=== PATIENT | male | born 1960 | race Two or more races ===

== ENCOUNTER 2022-05-14 16:06 | Inpatient (IN) | payer OTHER ==
[~2022-05-14] VITALS: Ht 165.1 cm; Wt 59.0 kg
[2022-05-14] MEDS ORDERED: SODIUM CHLORIDE 0.9% 1,000 ML IV ONE (16:45)
[2022-05-14 17:19] LABS: BASOPHILS % 0.6 % (0.0-2.0); EOSINOPHILS % 0.5 % (0.0-5.0); HEMATOCRIT. 46.6 % (42.0-52.0); HEMOGLOBIN. 15.6 g/dL (14.0-18.0); LYMPHOCYTES % 10.6 % (20.0-50.0); MEAN CORPUSCULAR HEMOGLOBIN 31.6 pg (28.0-32.0); MEAN PLATELET VOLUME 7.5 fl (7.4-10.4); NEUTROPHILS % 83.3 % (40.0-76.0); PLATELET 341 x1000/uL (130-400); RED BLOOD CELL COUNT 4.95 mill/uL (4.7-6.1); RED CELL DISTRIBUTION WIDTH 14.1 % (11.6-14.6)
[2022-05-14 17:26] LABS: CHLORIDE 107 mEq/L (98-107)
[2022-05-14 17:46] LABS: CREATINE KINASE 263 IU/L (39-308); ETHANOL BLOOD < 10 mg/dL
[2022-05-14 20:35] VITALS: BP 132/83
[2022-05-14] MEDS ORDERED: ACETAMINOPHEN 650MG SUPP PR PRN (22:15)
[2022-05-14] MEDS ORDERED: ACETAMINOPHEN 325MG TABLET PO PRN (22:15)
[2022-05-14] MEDS ORDERED: CEFTRIAXONE 2 G PREMIX 50 ML IV SCH (22:15)
[2022-05-14] MEDS: CEFTRIAXONE 2 G in DEXTROSE 5% WATER 50 ML IV SCH (22:47)
[2022-05-15] VITALS: BP 134/80
[2022-05-15] MEDS ORDERED: FOLIC ACID 1 MG, THIAMINE HCL 100 MG, MVI, ADULT NO.1 10 ML in DEXTROSE 5% WATER 1,000 ML IV ONE ×4
[2022-05-15] MEDS ORDERED: ACETAMINOPHEN 325MG TABLET PO PRN ×2 (01:00)
[2022-05-15] MEDS ORDERED: DIPHENHYDRAMINE 50MG/ML VIAL IV PRN (01:00)
[2022-05-15] MEDS ORDERED: ONDANSETRON HCL 4MG/2ML INJ IV PRN (01:00)
[2022-05-15] MEDS ORDERED: HALOPERIDOL LACTATE 5MG/ML VIAL IM PRN (01:15)
[2022-05-15 04:00] VITALS: BP 129/71
[2022-05-15 07:37] LABS: BASOPHILS % 0.8 % (0.0-2.0); EOSINOPHILS % 0.9 % (0.0-5.0); HEMATOCRIT. 39.1 % (42.0-52.0); HEMOGLOBIN. 13.2 g/dL (14.0-18.0); LYMPHOCYTES % 14.9 % (20.0-50.0); MEAN CORPUSCULAR HEMOGLOBIN 32.2 pg (28.0-32.0); MEAN CORPUSCULAR VOLUME 95.1 fL (80.0-94.0); MEAN PLATELET VOLUME 7.3 fl (7.4-10.4); MONOCYTES % 7.3 % (2.0-8.0); NEUTROPHILS % 76.1 % (40.0-76.0); PLATELET 292 x1000/uL (130-400); RED BLOOD CELL COUNT 4.11 mill/uL (4.7-6.1); RED CELL DISTRIBUTION WIDTH 14.1 % (11.6-14.6)
[2022-05-15 07:49] LABS: CLARITY URINE CLEAR (CLEAR); COLOR URINE YELLOW (YELLOW); KETONES URINE TRACE (NEGATIVE); LEUKOCYTE ESTERASE URINE NEGATIVE (NEGATIVE); NITRITE URINE NEGATIVE (NEGATIVE); OCCULT BLOOD URINE NEGATIVE (NEGATIVE); PROTEIN URINE TRACE (NEGATIVE); SPECIFIC GRAVITY URINE 1.019 (1.005-1.030); UROBILINOGEN URINE 0.2 E.U./dL (0.2-1.0)
[2022-05-15 08:00] VITALS: BP 121/69
[2022-05-15 08:01] LABS: CHLORIDE 109 mEq/L (98-107)
[2022-05-15 08:24] LABS: CREATINE KINASE 1828 IU/L (39-308)
[2022-05-15 09:54] LABS: *AMPHETAMINES SCREEN URINE NEGATIVE (NEGATIVE); *BARBITURATES SCREEN URINE NEGATIVE (NEGATIVE); *BENZODIAZEPINES SCREEN URINE NEGATIVE (NEGATIVE); *COCAINE SCREEN URINE NEGATIVE (NEGATIVE); CANNABINOID URINE SCREEN NEGATIVE (NEGATIVE); METHADONE URINE SCREEN NEGATIVE (NEGATIVE); OPIATES URINE SCREEN NEGATIVE (NEGATIVE); PHENCYCLIDINE URINE SCREEN NEGATIVE (NEGATIVE)
[2022-05-15] MEDS: DEXT 5%/0.45% NACL 1000ML 1,000 ML IV SCH ×2 (10:36→18:06)
[2022-05-15 12:00] VITALS: BP 116/73
[2022-05-15 16:00] VITALS: BP 116/78
[2022-05-15 20:00] VITALS: BP 128/67
[2022-05-15] MEDS: CEFTRIAXONE 2 G in DEXTROSE 5% WATER 50 ML IV SCH (23:02)
[2022-05-16] VITALS: BP 114/70
[2022-05-16] MEDS: DEXT 5%/0.45% NACL 1000ML 1,000 ML IV SCH ×3 (03:18→22:53)
[2022-05-16 04:00] VITALS: BP 123/75
[2022-05-16 08:00] VITALS: BP 118/73
[2022-05-16 12:00] VITALS: BP 108/61
[2022-05-16 16:00] VITALS: BP 105/71
[2022-05-16 20:00] VITALS: BP 108/66
[2022-05-16] MEDS: CEFTRIAXONE 2 G in DEXTROSE 5% WATER 50 ML IV SCH (22:53)
[2022-05-17] VITALS: BP 108/67
[2022-05-17 04:00] VITALS: BP 110/72
[2022-05-17 08:00] VITALS: BP 115/68
[2022-05-17] MEDS: DEXT 5%/0.45% NACL 1000ML 1,000 ML IV SCH ×2 (08:41→20:00)
[2022-05-17 12:00] VITALS: BP 111/66
[2022-05-17 16:00] VITALS: BP 124/75
[2022-05-17 20:00] VITALS: BP 148/72
[2022-05-17] MEDS: CEFTRIAXONE 2 G in DEXTROSE 5% WATER 50 ML IV SCH (23:30)
[2022-05-18] VITALS: BP 146/70
[2022-05-18 04:00] VITALS: BP 140/74
[2022-05-18] MEDS: DEXT 5%/0.45% NACL 1000ML 1,000 ML IV SCH (06:00)
[2022-05-18 08:00] VITALS: BP 127/74
[2022-05-18 12:00] VITALS: BP 119/70
[2022-05-18 13:10] VITALS: BP 127/74
== END 2022-05-18 13:55 | disposition home or self-care (01) | DRG 871 ==
LOC: ER 16:06 → 6WST 19:11 → ENRESERV 20:16 → 6EST 05-17 13:20
PROVIDERS: ADMIT Internal Medicine; ATTEND Internal Medicine
DX: A41.9 Sepsis, unspecified organism (principal); G92.8 Other toxic encephalopathy; E86.0 Dehydration; R33.9 Retention of urine, unspecified; F99 Mental disorder, not otherwise specified; F20.9 Schizophrenia, unspecified; Z59.01 Sheltered homelessness
CPT/HCPCS: 36415; 71045; 80048; 80053; 80305; 80307; 80320; 80329; 81003; 82140; 82550; 82962; 83605; 83880; 84443; 84484; 85025; 93005; 99285; J0696; J1630; J3411; J3490; J7030; J7060; J7070; A4315; G0480